=== PATIENT | female | born 1935 | race African-American/Black ===

== ENCOUNTER 2019-03-08 11:25 | Day surgery (SDC) | payer MEDICARE, OTHER ==
[2019-03-08] VITALS (8 sets, daily range): BP systolic 176–239; BP diastolic 85–95
[~2019-03-08] VITALS: Ht 157.5 cm; Wt 90.7 kg
--- NOTE | 2019-03-08 08:32 | Pre-Procedure Note/Attestation ---
Pre-Procedure Note/Attestation Complete Prior to Procedure Planned Procedure: left Procedure Narrative: Removal of cataract and placement of intraocular lens, LEFT EYE Indications for Procedure Pre-Operative Diagnosis: Cataract, combined, left eye Attestation I attest that I discussed the nature of the procedure; its benefits; risks and complications; and alternatives (and the risks and benefits of such alternatives ), prior to the procedure, with the patient (or the patient's legal retention representative). I attest that, if there was a reasonable possibility of needing a blood transfusion, the patient (or the patient's legal retention representative) was given the [facility] standardized written summary, pursuant to the Russel Rives Blood Safety Act ([place] Health and Safety Code # 1645, as amended). I attest that I re-evaluated the patient just prior to the surgery and that there has been no change in the patient's H&P, except as documented below: Kit Armstrong MD Mar 08, 2019 08:32
[~2019-03-08 11:25] MED LIST: AMIODARONE HCL100 MG ORAL; DILTIAZEM HCL120 MG PO; ELIQUIS5 MG PO
[2019-03-08] MEDS ORDERED: Ciprofloxacin Opth Soln 2.5ml ONE (11:45)
[2019-03-08] MEDS ORDERED: Akten 3.5% 1ml Btl ONE (11:45)
[2019-03-08] MEDS ORDERED: Cyclopentolate 1% Opth Sol 2ml ONE (11:45)
[2019-03-08] MEDS ORDERED: Phenylephrine 10% Opth Soln 5ml ONE (11:46)
[2019-03-08] MEDS ORDERED: Tobradex Opth Susp 2.5ml ONE (11:46)
[2019-03-08] MEDS ORDERED: Tropicamide 1% Opth 15ml Soln ONE (11:46)
[2019-03-08] MEDS: Akten 3.5% 1ml Btl LEFT EYE SCH ×3 (12:08→12:34)
[2019-03-08] MEDS: Cyclopentolate 1% Opth Sol 2ml LEFT EYE SCH ×3 (12:09→12:35)
[2019-03-08] MEDS: Ciprofloxacin Opth Soln 2.5ml LEFT EYE SCH ×3 (12:09→12:34)
[2019-03-08] MEDS: Tropicamide 1% Opth 15ml Soln LEFT EYE SCH ×3 (12:09→12:35)
[2019-03-08] MEDS: Phenylephrine 10% Opth Soln 5ml LEFT EYE SCH ×3 (12:10→12:35)
[2019-03-08] MEDS: Tobradex Opth Susp 2.5ml LEFT EYE SCH ×3 (12:10→12:35)
[2019-03-08] MEDS ORDERED: Lidocaine 1% MPF 10mg/ml 5ml ONE (12:25)
[2019-03-08] MEDS ORDERED: EPINEPHrine 1mg/1ml Amp ONE (12:25)
[2019-03-08] MEDS ORDERED: Lidocaine 4% Amp ONE (12:25)
[2019-03-08] MEDS ORDERED: Timolol 0.5% Op Soln 2.5ml ONE (12:26)
[2019-03-08] MEDS ORDERED: Dexamethasone 4mg/ml vial ONE (12:26)
[2019-03-08] MEDS ORDERED: Fluorescein Strips ONE (12:26)
[2019-03-08] MEDS ORDERED: Maxitrol Opth Susp 5ml ONE (12:26)
[2019-03-08] MEDS ORDERED: Pred Forte 1% Opth Susp 1ml ONE (12:26)
[2019-03-08] MEDS ORDERED: Carbachol 0.01% Op Soln 1.5ml vial ONE (12:26)
[2019-03-08] MEDS ORDERED: Tetracaine 0.5% Opth 4ml Soln ONE (12:27)
[2019-03-08] MEDS ORDERED: BSS 500ml btl ONE ×2 (12:27→14:45)
[2019-03-08] MEDS ORDERED: Povidone-Iodine 5% opth solution ONE (12:27)
[2019-03-08] MEDS ORDERED: Bupivacaine 0.75% 30ml vial INJ ONE (12:27)
[2019-03-08] MEDS ORDERED: BSS 15ml BTL ONE (12:27)
[2019-03-08] MEDS ORDERED: Sodium Hyaluronate 10 mg/ml 0.85ml ONE (12:28)
[2019-03-08] MEDS ORDERED: fentaNYL 100 mcg/2 mL IV ONE (13:23)
[2019-03-08] MEDS ORDERED: Propofol 200mg/20ml IV ONE (13:23)
[2019-03-08] MEDS ORDERED: LR 1000ml ONE (13:30)
[2019-03-08] MEDS ORDERED: Sterile Water Irrig 1000ml IRRIG ONE (13:30)
[2019-03-08] MEDS ORDERED: NS Irrig 1000ml ONE (13:30)
[2019-03-08] MEDS ORDERED: LR 1000ml 1,000 ML IVLG SCH (13:52)
--- NOTE | 2019-03-08 13:52 | Anethesia Preoperative Eval ---
Anesthesia Pre-op PMH/ROS General Date of Evaluation: Mar 08, 2019 Time of Evaluation: 13:47 Anesthesiologist: Robert ASA Score: ASA 3 Mallampati Score Class I : Soft palate, uvula, fauces, pillars visible Class II: Soft palate, uvula, fauces visible Class III: Soft palate, base of uvula visible Class IV: Only hard plate visible Mallampati Classification: Class III Surgeon: Patti Diagnosis: L eye cataract Surgical Procedure: L eye cataract extraction Anesthesia History: none Family History: no anesthesia problems Allergies: Coded Allergies: CLAMS (Verified Allergy, Severe, 03/07/19) trouble breathing, hives LATEX (Verified Allergy, Severe, hives, 03/07/19) PENICILLINS (Verified Allergy, Severe, hives, 03/07/19) Medications: see eMAR Patient NPO?: Yes Past Medical History Cardiovascular: Reports: HTN, CAD, arrhythmia - A fib, pacer in place, stable; Denies: AL, valve dz, other Pulmonary: Reports: NEFTALI; Denies: asthma, COPD, other Gastrointestinal/Genitourinary: Reports: GERD, CRI; Denies: ESRD, other Neurologic/Psychiatric: Reports: depression/anxiety; Denies: dementia, CVA, TIA, other Endocrine: Reports: DM - stable, hypothyroidism HEENT: Reports: cataract (L), glaucoma, other - legaly blind Hematology/Immune: Reports: bleeding disorder - anticoagulated; Denies: anemia, DVT, other Musculoskeletal/Integumentary: Reports: OA; Denies: RA, DJD, DDD, edema, other Other: obesity PMH Narrative: as above PSxH Narrative: brain aneurysm clipping, THEE, knee Sx Anesthesia Pre-op Phys. Exam Physician Exam Last Vital Signs Date Time Temp Pulse Resp B/P (MAP) Pulse Ox O2 Delivery O2 Flow Rate FiO2 03/08/19 12:13 Room Air 03/08/19 12:05 97.5 67 20 176/89 98 Constitutional: NAD Neurologic: CN 2-12 intact Cardiovascular: RRR, no M/R/G Respiratory: CTA Gastrointestinal: other - obesity Airway Exam Mallampati Score: Class III MO: limited Neck: short ROM: limited Teeth: missing, other - paradontosis Dentures: no upper, no lower Anesthesia Pre-op A/P Labs see chart Studies Pre-op Studies: EKG - SR Risk Assessment & Plan Assessment: ASA 3 Plan: MAC Status Change Before Surgery: No Pre-Antibiotics Drug: none Jordan Jones MD Mar 08, 2019 13:52
[2019-03-08] MEDS ORDERED: fentaNYL 100 mcg/2 mL IV PRN (14:00)
--- NOTE | 2019-03-08 15:09 | Discharge Instructions ---
Discharge Instructions Discharge Instructions Follow Up Orders Followup tomorrow in Dr Armstrong's office Continue preop eye drops Leave shield in place except to place eye drops For Congestive Heart Failure Reminder Report to your physician any weight gain of 5 pounds or more in one week. Kit Armstrong MD Mar 08, 2019 15:09
--- NOTE | 2019-03-08 15:12 | Brief Operative Note ---
Immediate Post Operative Note Operative Note Pre-op Diagnosis: Cataract, combined, left eye Procedure: Phaco PC IOL OS Post-op Diagnosis: Cataract, combined, OS Surgeon: Usha Armstrong MD MS Youth Corrections Officer: none Anesthesiologist: Dr Jones Anesthesia: local, MAC Specimen: none Complications: none Fluids: see chart Implant(s) used?: Yes - gibson [id number] 20.0 Kit Armstrong MD Mar 08, 2019 15:12
--- NOTE | 2019-03-08 15:12 | Immediate Post-Op Evaluation ---
Immediate Post-Op Evalulation Immediate Post-Op Evalulation Procedure: L eye cataract extraction with IOL Date of Evaluation: Mar 08, 2019 Time of Evaluation: 15:11 IV Fluids: 300 Blood Products: none Estimated Blood Loss: none Urinary Output: none Blood Pressure Systolic: 159 Blood Pressure Diastolic: 86 Pulse Rate: 62 Respiratory Rate: 20 O2 Sat by Pulse Oximetry: 98 Temperature (Fahrenheit): 97.6 Pain Score (1-10): 1 Nausea: No Vomiting: No Complications NONE Patient Status: awake, patent, none Hydration Status: adequate Jordan Jones MD Mar 08, 2019 15:12
--- NOTE | 2019-03-08 15:42 | 48 Hour Post Anesthesia Eval ---
Post Anesthesia Evaluation Procedure: L eye cataract extraction with IOL Date of Evaluation: Mar 08, 2019 Time of Evaluation: 15:40 Blood Pressure Systolic: 176 0: 86 Pulse Rate: 61 Respiratory Rate: 20 Temperature (Fahrenheit): 97.6 O2 Sat by Pulse Oximetry: 98 Airway: patent Nausea: No Vomiting: No Pain Intensity: 1 Hydration Status: adequate Cardiopulmonary Status: stable Mental Status/LOC: patient returned to baseline Follow-up Care/Observations: n/a Post-Anesthesia Complications: none Follow-up care needed: ready to discharge Jordan Jones MD Mar 08, 2019 15:42
--- NOTE | 2019-03-08 19:00 | Operative Note - Dictated ---
DATE OF OPERATION: 03/08/2019 SURGEON: Kit Armstrong M.D. INTERNATIONAL RELATIONS TEACHER SURGEON: None. ANESTHESIOLOGIST: Jordan Jones M.D. ANESTHESIA: Local/standby/monitored anesthesia care. PREOPERATIVE DIAGNOSIS: Cataract, combined, left eye. POSTOPERATIVE DIAGNOSIS: Cataract, combined, left eye. PROCEDURE: 1. Phacoemulsification of cataract, left eye. 2. Placement of posterior chamber intraocular lens, left eye (model Baker ZCB00, power 20.0). 3. Use of VisionBlue for capsular staining. SPECIMENS: None. COMPLICATIONS: None. INDICATIONS FOR SURGERY: The patient has had the painless progressive decrease in visual acuity in the left eye secondary to cataract. The patient understands the risks of surgery including infection, bleeding, need for further surgery, loss of vision, no improvement in vision, loss of the eye, loss of life, worsening glaucoma, retinal detachment, and understands these risks and elects to proceed with surgery. FINDINGS: The patient had a +3 to 4 nuclear sclerotic cataract with a +2 cortical cataract, as well as a +4 posterior subcapsular cataract. OPERATIVE NOTE: After informed consent was obtained, the patient was brought into the operating room and placed in supine position. Cardiac and respiratory monitors were attached. A time-out was performed and all criteria were met and everyone in the room agreed. The left eye was then draped and prepped in sterile manner for ocular surgery. A lid speculum was placed in the eye. A very small injection of 0.1 mL of lidocaine was made at the approximate 3 o'clock limbus. A small conjunctival peritomy was made to expose the limbus. A 2.6 mm limbal incision was made and dissected anteriorly. Paracentesis was made at approximately 5 o'clock. Shugarcaine was injected into the anterior chamber followed by an air bubble. There was a very hazy view of the anterior capsule secondary to the dull light reflex from the cataract and VisionBlue for capsular staining was then used. After the Shugarcaine was injected into the eye, an air bubble was injected in the eye followed by vision blue. This was then irrigated from the anterior chamber, after it was stained on the anterior capsule. Healon was injected into the anterior chamber. The anterior chamber was then entered using a 2.6 mm keratome through the limbal incision. An anterior capsulorrhexis was then performed. Hydrodissection and hydrodelineation of the lens was performed. It was very evident at that point that the capsule was very thin. The lens was then phacoemulsified using divide and conquer four-quadrant technique. Residual cortical material was then aspirated. Healon was injected into the anterior chamber and capsular bag. The lens was taken from its package, placed into the cartridge and the tip of the cartridge was placed through the limbal incision. The lens was injected into the capsular bag and centered nicely with a Sinskey hook. Healon was then aspirated from the anterior chamber and capsular bag. The lens was noted to have both haptics and the optic in the capsular bag. It was aligned along the 180 degree meridian. The paracentesis and limbal wound were closed with hydration. In addition one 10-0 nylon interrupted suture was placed at the limbal incision. The wounds were checked and found to be watertight. Care was taken during the entire procedure not to touch the endothelium. The small little conjunctiva was already closed essentially. The lid speculum and drapes were removed from the eye and the wounds were noted to be watertight. Drops of Timoptic 0.5%, Pred Forte, Zylet, and ciprofloxacin were applied to the eye followed by a shield. The patient tolerated the procedure well and left the operating room awake, alert, and in stable condition. Kit Armstrong M.D. DR: GARRISON JOB#: [id number] CC:
== END 2019-03-08 16:15 | disposition home or self-care (01) ==
LOC: SUR 11:25
DX: H25.12 Age-related nuclear cataract, left eye (principal); H25.012 Cortical age-related cataract, left eye; H25.042 Posterior subcapsular polar age-related cataract, left eye; G47.33 Obstructive sleep apnea (adult) (pediatric); K21.9 Gastro-esophageal reflux disease without esophagitis; E03.9 Hypothyroidism, unspecified; F41.9 Anxiety disorder, unspecified; F32.9 Major depressive disorder, single episode, unspecified; M19.90 Unspecified osteoarthritis, unspecified site; E66.9 Obesity, unspecified; E11.22 Type 2 diabetes mellitus with diabetic chronic kidney disease; I12.9 Hypertensive chronic kidney disease with stage 1 through stage 4 chronic kidney disease, or unspecified chronic kidney disease; N18.9 Chronic kidney disease, unspecified; Z68.36 Body mass index [BMI] 36.0-36.9, adult
CPT/HCPCS: 66984; 82962; J0171; J1100; J2704; J3010; V2632; 94003; 94150

== ENCOUNTER 2019-04-17 07:38 | Day surgery (SDC) | payer MEDICARE, OTHER ==
[2019-04-17] VITALS (10 sets, daily range): BP systolic 156–183; BP diastolic 58–89
[~2019-04-17] VITALS: Ht 157.5 cm; Wt 86.2 kg
--- NOTE | 2019-04-17 07:15 | Pre-Procedure Note/Attestation ---
Pre-Procedure Note/Attestation Complete Prior to Procedure Planned Procedure: right - Removal of cataract and placement of intraocular lens, right eye Procedure Narrative: Removal of cataract and placement of intraocular lens right eye Indications for Procedure Pre-Operative Diagnosis: Cataract, right eye Attestation I attest that I discussed the nature of the procedure; its benefits; risks and complications; and alternatives (and the risks and benefits of such alternatives ), prior to the procedure, with the patient (or the patient's legal ict sales representative). I attest that, if there was a reasonable possibility of needing a blood transfusion, the patient (or the patient's legal ict sales representative) was given the [facility] standardized written summary, pursuant to the Russel Lore Blood Safety Act ([place] Health and Safety Code # 1645, as amended). I attest that I re-evaluated the patient just prior to the surgery and that there has been no change in the patient's H&P, except as documented below: Kit Armstrong MD Apr 17, 2019 07:15
[~2019-04-17 07:38] MED LIST changes: +BSS 15ml BTL ONE; +BSS 500ml btl ONE; +Bupivacaine 0.75% 30ml vial INJ ONE; +Carbachol 0.01% Op Soln 1.5ml vial ONE; +Dexamethasone 4mg/ml vial ONE; +EPINEPHrine 1mg/1ml Amp ONE; +FUROSEMIDE20 M1 ORAL; +Fluorescein Strips ONE; +LEVOTHYROXINE75 MCG ORAL; +Lidocaine 1% MPF 10mg/ml 5ml ONE; +Lidocaine 4% Amp ONE; +Povidone-Iodine 5% opth solution ONE; +Pred Forte 1% Opth Susp 1ml RIGHT EYE ONE; +Tetracaine 0.5% Opth 4ml Soln ONE; +Timolol 0.5% Op Soln 2.5ml ONE
[2019-04-17] MEDS ORDERED: Sodium Hyaluronate 10 mg/ml 0.85ml ONE (07:40)
[2019-04-17] MEDS: Akten 3.5% 1ml Btl RIGHT EYE SCH ×3 (08:15→08:50)
[2019-04-17] MEDS: Cyclopentolate 1% Opth Sol 2ml RIGHT EYE SCH ×3 (08:16→08:50)
[2019-04-17] MEDS: Diclofenac Sod 0.1% Op Soln RIGHT EYE SCH ×3 (08:16→08:50)
[2019-04-17] MEDS: Tropicamide 1% Opth 15ml Soln RIGHT EYE SCH ×3 (08:16→08:51)
[2019-04-17] MEDS: Ciprofloxacin Opth Soln 2.5ml RIGHT EYE SCH ×3 (08:16→08:50)
[2019-04-17] MEDS: Phenylephrine 10% Opth Soln 5ml RIGHT EYE SCH ×3 (08:16→08:51)
[2019-04-17] MEDS ORDERED: Maxitrol Opth Susp 5ml ONE (09:04)
[2019-04-17] MEDS ORDERED: Polysporin Opth Oint 3.5gm ONE (09:04)
[2019-04-17] MEDS ORDERED: Midazolam 2mg/2ml Inj ONE (09:11)
[2019-04-17] MEDS ORDERED: Lidocaine 1% MPF 10mg/ml 5ml ONE (09:11)
[2019-04-17 09:12] LABS: EOSINOPHILS % (AUTO) 1.6 % (0.0-3.0); HEMATOCRIT 37.2 % (37.0-47.0); HEMOGLOBIN 12.2 G/DL (12.0-16.0); LYMPHOCYTES % (AUTO) 16.2 % (20.0-45.0); MEAN CORPUSCULAR VOLUME 92 FL (80-99); MONOCYTES % (AUTO) 8.2 % (1.0-10.0); PLATELET COUNT 189 K/UL (150-450); RED BLOOD COUNT 4.03 M/UL (4.20-5.40); RED CELL DISTRIBUTION WIDTH 12.8 % (11.6-14.8); WHITE BLOOD COUNT 6.6 K/UL (4.8-10.8)
[2019-04-17] MEDS ORDERED: LR 1000ml 1,000 ML IVLG SCH (09:12)
[2019-04-17] MEDS ORDERED: LORazepam Inj 2mg/ml 1ml IV PRN (09:15)
[2019-04-17] MEDS ORDERED: Labetalol 5mg/ml 20ml vial IV PRN (09:15)
[2019-04-17] MEDS ORDERED: HYDROcodone/Acetamin 5/325 tab ORAL PRN (09:15)
[2019-04-17] MEDS ORDERED: Hydromorphone 0.5mg/0.5ml inj IVP PRN (09:15)
[2019-04-17] MEDS ORDERED: Meperidine 50mg/ml Inj(FOR RIGORS ONLY) IVP PRN (09:15)
[2019-04-17] MEDS ORDERED: Ketorolac 30mg Inj IV PRN ×2 (09:15)
[2019-04-17] MEDS ORDERED: Midazolam 2mg/2ml Inj IVP PRN (09:15)
[2019-04-17] MEDS ORDERED: DiphenhydrAMINE 50mg/ml Inj IVP PRN (09:15)
[2019-04-17] MEDS ORDERED: oxyCODONE HCL/Acetaminophen 5/325mg ORAL PRN (09:15)
[2019-04-17] MEDS ORDERED: Atropine Sulfate 0.4mg/ml inj IVP PRN (09:15)
[2019-04-17] MEDS ORDERED: HYDROcodone/Acetamin 7.5/325 tab ORAL PRN (09:15)
[2019-04-17] MEDS ORDERED: fentaNYL 100 mcg/2 mL IV PRN (09:15)
[2019-04-17] MEDS ORDERED: Metoclopramide 10mg/2ml Inj IVP PRN (09:15)
--- NOTE | 2019-04-17 09:20 | Anethesia Preoperative Eval ---
Anesthesia Pre-op PMH/ROS General Date of Evaluation: Apr 17, 2019 Time of Evaluation: 09:24 Anesthesiologist: Yokasta ASA Score: ASA 3 Mallampati Score Class I : Soft palate, uvula, fauces, pillars visible Class II: Soft palate, uvula, fauces visible Class III: Soft palate, base of uvula visible Class IV: Only hard plate visible Mallampati Classification: Class III Surgeon: Patti Diagnosis: Cataract OD Surgical Procedure: Cat Ext IOL OD Anesthesia History: none Family History: no anesthesia problems Allergies: Coded Allergies: CLAMS (Verified Allergy, Severe, 04/16/19) trouble breathing, hives LATEX (Verified Allergy, Severe, hives, 04/16/19) PENICILLINS (Verified Allergy, Severe, hives, 04/16/19) Medications: see eMAR Patient NPO?: Yes Past Medical History Cardiovascular: Reports: HTN, arrhythmia - AFib , Pacemaker, other - HL Pulmonary: Reports: NEFTALI Gastrointestinal/Genitourinary: Reports: GERD Endocrine: Reports: hypothyroidism HEENT: Reports: cataract (L), cataract (R) Musculoskeletal/Integumentary: Reports: DDD Other: obesity - BMI 35 PSxH Narrative: THEE, R Knee SX, Spine Sx X3, Appendectomy Anesthesia Pre-op Phys. Exam Physician Exam Last Vital Signs Date Time Temp Pulse Resp B/P (MAP) Pulse Ox O2 Delivery O2 Flow Rate FiO2 04/17/19 08:26 97.6 73 20 183/86 99 Room Air Constitutional: NAD Neurologic: CN 2-12 intact Cardiovascular: RRR Respiratory: CTA Gastrointestinal: S/NT/ND Airway Exam Mallampati Score: Class II MO: limited ROM: limited Teeth: missing, intact Anesthesia Pre-op A/P Labs Hematology Test 04/17/19 08:50 White Blood Count Pending Red Blood Count Pending Hemoglobin Pending Hematocrit Pending Mean Corpuscular Volume Pending Mean Corpuscular Hemoglobin Pending Mean Corpuscular Hemoglobin Concent Pending Red Cell Distribution Width Pending Platelet Count Pending Mean Platelet Volume Pending Neutrophils (%) (Auto) Pending Lymphocytes (%) (Auto) Pending Monocytes (%) (Auto) Pending Eosinophils (%) (Auto) Pending Basophils (%) (Auto) Pending Chemistry Test 04/17/19 08:50 Sodium Level Pending Potassium Level Pending Chloride Level Pending Carbon Dioxide Level Pending Blood Urea Nitrogen Pending Creatinine Pending Estimat Glomerular Filtration Rate Pending Glucose Level Pending Calcium Level Pending Risk Assessment & Plan Assessment: ASA 3 Plan: TIVA Status Change Before Surgery: Med Lofton MD Apr 17, 2019 09:20
[2019-04-17 09:27] LABS: ANION GAP 11 mmol/L (5-15); BLOOD UREA NITROGEN 32 mg/dL (7-18); CALCIUM 9.4 MG/DL (8.5-10.1); CARBON DIOXIDE 26 MMOL/L (21-32); CHLORIDE 107 MMOL/L (98-107); CREATININE 1.6 MG/DL (0.55-1.30); POTASSIUM 4.3 MMOL/L (3.5-5.1); SODIUM 144 MMOL/L (136-145)
[2019-04-17] MEDS ORDERED: Propofol 200mg/20ml IV ONE (09:30)
[2019-04-17] MEDS ORDERED: Sterile Water Irrig 1000ml IRRIG ONE (09:30)
[2019-04-17] MEDS ORDERED: LR 1000ml ONE (09:30)
[2019-04-17] MEDS ORDERED: NS Irrig 1000ml ONE (09:30)
--- NOTE | 2019-04-17 09:47 | Immediate Post-Op Evaluation ---
Immediate Post-Op Evalulation Immediate Post-Op Evalulation Procedure: Cat Ext IOL OD Date of Evaluation: Apr 17, 2019 Time of Evaluation: 11:25 IV Fluids: 1000 LR Blood Products: 0 Estimated Blood Loss: 2 Urinary Output: 0 Blood Pressure Systolic: 178 Blood Pressure Diastolic: 84 Pulse Rate: 60 Respiratory Rate: 16 O2 Sat by Pulse Oximetry: 99 Temperature (Fahrenheit): 97.7 Pain Score (1-10): 1 Nausea: No Vomiting: No Complications 0 Patient Status: awake, reacts, patent, none Hydration Status: adequate Med Templeton MD Apr 17, 2019 09:47
--- NOTE | 2019-04-17 09:48 | 48 Hour Post Anesthesia Eval ---
Post Anesthesia Evaluation Procedure: Cat Ext IOL OD Date of Evaluation: Apr 17, 2019 Time of Evaluation: 13:32 Blood Pressure Systolic: 167 0: 78 Pulse Rate: 63 Respiratory Rate: 18 Temperature (Fahrenheit): 97.8 O2 Sat by Pulse Oximetry: 96 Airway: patent Nausea: No Vomiting: No Pain Intensity: 1 Hydration Status: adequate Cardiopulmonary Status: Stable Mental Status/LOC: patient returned to baseline Follow-up Care/Observations: 0 Post-Anesthesia Complications: 0 Follow-up care needed: ready to discharge Med Templeton MD Apr 17, 2019 09:48
[2019-04-17] MEDS ORDERED: BSS 500ml btl ONE (10:29)
--- NOTE | 2019-04-17 11:08 | Discharge Instructions ---
Discharge Instructions Discharge Instructions Follow Up Orders Continue preop eye drops Keep shield on at all times except to place eye drops followup tomorrow in Dr Armstrong's office For Congestive Heart Failure Reminder Report to your physician any weight gain of 5 pounds or more in one week. Kit Armstrong MD Apr 17, 2019 11:08
--- NOTE | 2019-04-17 11:11 | Brief Operative Note ---
Immediate Post Operative Note Operative Note Pre-op Diagnosis: Cataract, right eye Procedure: Phaco PC IOL OD Use of Vision Blue for capsular staining OD Post-op Diagnosis: Dense Cataract, combined, right eye Surgeon: Usha Armstrong MD MS Continuous Process Tanner Rotary Drum: none Anesthesiologist: Dr Med Templeton Anesthesia: local, MAC Specimen: none Complications: none Fluids: see chart Implant(s) used?: Yes - gibson [id number] 19.5 Kit Armstrong MD Apr 17, 2019 11:11
--- NOTE | 2019-04-17 15:45 | Pre-op HX & Phy Repo 2 SIG ---
DATE OF ADMISSION: 04/17/2019 PRESURGICAL INTERNAL MEDICINE HISTORY AND PHYSICAL DATE OF EVALUATION: 04/17/2019 REASON FOR EVALUATION: I was asked by Dr. Kit Armstrong to see this 83-year-old female going for elective surgery on the right eye. The patient has a sclerotic cataract, right eye. Please see full description by Dr. Kit Armstrong History and Physical. The patient was evaluated and chart was reviewed in the outpatient procedure of [facility]. PAST MEDICAL HISTORY: Remarkable for history of hypertension, history of coronary heart disease, and paroxysmal atrial fibrillation. The patient has a coronary artery stent placement, one vessel and history of obesity. No history of heart attack. 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 The patient has hypothyroidism and chronic sinus sinusitis. Ten years ago, the patient had a ruptured aneurysm of brain and had a surgical bleeding stopped " clamp blood vessel." The patient has severe peripheral osteoarthritis of knee and required surgery total left knee replacement. The patient uses a walker to ambulate. The patient has history of obesity with BMI of 34 kg/meter square. The patient has a history of chronic renal disease with GFR of 29 mL/minute and diabetes mellitus type 2, not on any medication. PAST SURGICAL HISTORY: Hysterectomy; total knee replacement, left; brain aneurysm; coronary heart stent; and cataract surgery in February 2019 FAMILY HISTORY: Mother from a heart attack at age of 94, father unknown. MEDICATIONS: Present medications include Xanax 1 mg, Lasix 20 mg p.r.n., Cardizem, levothyroxine 50 mcg daily, nasal spray, Eliquis daily, naproxen, oxycodone p.r.n., and Micardis 80 mg daily. ALLERGIES: To penicillin, cramps and possible iodine. PHYSICAL EXAMINATION: GENERAL: The patient is alert, well-developed and well-nourished female in her 80s. VITAL SIGNS: Blood pressure 157/89, temperature 97.6, pulse 69 and regular, and respirations 20. O2 saturation 99% on room air. SKIN: Clear, warm, and dry. No rashes, ecchymosis or ulcers. Scar on left knee and back. LYMPHATICS: Lymph nodes not enlarged. No tenderness. HEENT: Head is normocephalic, atraumatic. Eyes, see full description per Dr. Kit Armstrong. Ears clear. No discharge. Mouth, clear and moist. Partial dentures upper and lower. CHEST: Mild kyphosis. LUNGS: Clear to auscultation to percussion. No rales or rhonchi. HEART: Sinus rhythm. No ectopy. No murmur. No S3, S4. ABDOMEN: Soft, obese. Liver and spleen not enlarged. No rebound. EXTREMITIES: Degenerative joint disease of knee. Total left knee replacement. No edema. No varicose vein. No calf tenderness. GENITOURINARY: Denies dysuria or urgency. No CVA tenderness. NEUROLOGIC: No tremor. No nystagmus. LABORATORY AND DIAGNOSTIC DATA: ECG - normal sinus rhythm, 68 per minute, left ventricular hypertrophy with wide QRS. Nonspecific ST wave abnormality. The patient did not eat or drink from 9 p.m. yesterday. Fasting blood sugar 108 mg/dL. Sodium 144, potassium 4.3, chloride 107, BUN 32, and creatinine 1.6. Glucose is 120 and calcium 9.4. White blood cells 6.6, red blood cells 4.03, hemoglobin 12.2, and hematocrit 37.2. DIAGNOSES: 1. Nuclear sclerotic cataract, right eye. 2. Hypertension, controlled. 3. Low back pain, lumbar spine syndrome. 4. Obesity. BMI is 34 kg/meter square. 5. Chronic kidney disease, GFR of 29. 6. Chronic sinusitis. 7. Hypothyroidism. 8. History of type 2 diabetes from chart history. The patient is not on any medication. 9. History of brain aneurysm repair in 2008. 10. Coronary heart stent placement x1. PLAN: Cataract extraction, right eye with intraocular lens implant per Dr. Kit Armstrong. CONCLUSION: The patient is an 83-year-old female with multiple medical problems include chronic kidney disease, coronary heart disease, hypertension, and history of low back pain syndrome. The patient's vital signs stable. ECG had changes, but clinically stable. The patient is n.p.o. from 9 p.m. yesterday. The patient's condition optimized for surgery. Thank you very much, Dr. Kit Armstrong, for privilege to participate in presurgical care of this interesting patient. Cleo Hill M.D. DR: BAYRON JOB#: [id number] CC:
--- NOTE | 2019-04-17 18:15 | Operative Note - Dictated ---
DATE OF OPERATION: 04/17/2019 SURGEON: Kit Armstrong M.D. DIAGNOSTIC TECHNOLOGIST SURGEON: None. ANESTHESIOLOGIST: Med Templeton M.D. ANESTHESIA: Local/standby/monitored anesthesia care. PREOPERATIVE DIAGNOSIS: Dense combined cataract, right eye. POSTOPERATIVE DIAGNOSIS: Dense combined cataract, right eye. PROCEDURE: 1. Phacoemulsification of cataract, right eye. 2. Placement of posterior chamber intraocular lens, right eye (model ZCB00, power 19.5). 3. Use of VisionBlue for capsular staining secondary to the dense cataract. COMPLICATIONS: None. SPECIMENS: None. INDICATIONS FOR SURGERY: The patient has had a painless progressive decrease in visual acuity in the right eye secondary to cataract. The patient understands the risks of surgery including infection, bleeding, need for further surgery, loss of vision, no improvement in vision, loss of the eye, loss of life, worsening of glaucoma, and retinal detachment, understands these risks and elects to proceed with surgery. FINDINGS: The patient had a very dense +4 nuclear sclerotic cataract and there was virtually no cortex present also. Because it was so dense, I was unable to visualize the anterior capsule. This necessitated using the VisionBlue for the capsular staining. The capsule did remain intact during the entire procedure despite being such a very dense cataract. OPERATIVE NOTE: After informed consent was obtained, the patient was brought into the operating room and placed in supine position. Cardiac and respiratory monitors were attached. A time-out was performed and all criteria were met and everyone in the room agreed. The right eye was then draped and prepped in sterile manner for ocular surgery. A lid speculum was placed in the eye. A 1% lidocaine preservative-free was injected at the approximate 8 o'clock limbus. Minimal conjunctival peritomy from approximately 7:30 to 8:30 was made and dissected posteriorly. Hemostasis was maintained with bipolar cautery. A 2.6 mm limbal incision was made and dissected anteriorly. Paracentesis was made at approximately 12 o'clock. Shugarcaine was injected into the anterior chamber followed by an air bubble. VisionBlue was injected into the anterior chamber and the anterior capsule was stained and then Vision Blue was irrigated from the eye. The anterior chamber was then entered using a 2.6 mm keratome through the limbal incision. An anterior capsulorrhexis was then performed (in addition, the patient had restless legs syndrome and occasionally made 7 jerking movements during the procedure). After the anterior chamber was then entered with a 2.6 mm keratome, an anterior capsulorrhexis was then performed. Hydrodissection and hydrodelineation of the lens was then performed. There was virtually no cortex present upon hydrodissection and hydrodelineation, but I was able to rotate the nucleus. Hydrodissection and hydrodelineation was then performed very carefully. This necessitated going to grade 3 to 4 on the phaco unit as well as going slowly in order not to perforate the capsule. This was a very dense cataract and was removed in a divide and conquer four-quadrant technique. There was virtually no cortex present. Healon was injected into the anterior chamber and capsular bag. The lens was taken from its package, placed into the cartridge and the tip of the cartridge was placed through the limbal incision. The lens was injected into the capsular bag and centered nicely along the 3 o'clock to 9 o'clock meridian. Healon was aspirated from the anterior chamber and capsular bag. One 10-0 nylon interrupted suture was then placed through the limbal incision as well as one short one through the paracentesis at 12 o'clock. All knots were rotated and buried. The wounds were checked and found to be watertight. The conjunctiva was closed with forceps cautery. The lens was re-examined and the optic was in the capsular bag as well as both haptics. The lens was aligned along the 3 o'clock to 9 o'clock meridian. The lid speculum and drapes were removed from the eye and drops of Timoptic 0.5%, Pred Forte, ciprofloxacin, and Maxitrol were applied to the eye followed by polymyxin B neomycin ophthalmic ointment. A shield was placed over the eye. The patient then left the operating room awake, alert, and in stable condition. Kit Armstrong M.D. DR: GARRISON JOB#: [id number] CC:
--- NOTE | 2019-04-21 15:34 | Cardiology Report ---
APPROVED REPORT EKG Measurement Heart [id number] MI [id number] Normal sinus rhythm Left ventricular hypertrophy with QRS widening Nonspecific ST abnormality Abnormal ECG
== END 2019-04-17 12:35 | disposition home or self-care (01) ==
LOC: SUR 07:38
DX: H25.11 Age-related nuclear cataract, right eye (principal); Z95.5 Presence of coronary angioplasty implant and graft; E03.9 Hypothyroidism, unspecified; Z90.710 Acquired absence of both cervix and uterus; Z96.652 Presence of left artificial knee joint; Z79.01 Long term (current) use of anticoagulants; Z79.899 Other long term (current) drug therapy; Z88.0 Allergy status to penicillin; M54.5 Low back pain; E66.9 Obesity, unspecified; Z68.34 Body mass index [BMI] 34.0-34.9, adult; I13.10 Hypertensive heart and chronic kidney disease without heart failure, with stage 1 through stage 4 chronic kidney disease, or unspecified chronic kidney disease; N18.9 Chronic kidney disease, unspecified; J32.9 Chronic sinusitis, unspecified; E11.22 Type 2 diabetes mellitus with diabetic chronic kidney disease
CPT/HCPCS: 36415; 66984; 80048; 82962; 85025; 93005; J0171; J1100; J2250; J2704; V2632; 94003; 94150